=== PATIENT | female | born 1980 | race Caucasian/White ===

== ENCOUNTER 2017-11-05 09:39 | Emergency (ER) | payer MEDICAID ==
[2017-11-05] MEDS ORDERED: Ondansetron INJ* 2 MG/ML VIAL IV ONE (10:50)
[2017-11-05] MEDS ORDERED: NS 0.9% 1000 ML* 1,000 ML BOLUS ONE (10:50)
[2017-11-05] MEDS ORDERED: Famotidine IV* 10 MG/ML 2 ML (20 mg) IV SLOW PU ONE (10:51)
--- NOTE | 2017-11-05 10:55 | UC ---
Abdominal Pain Female HPI - HPI Summary HPI Summary: 36 yo female with the onset early this AM on n/Vx >10/diarrhea no f/v diffuse crampy abd pain has an IUD she had one beer at bedtime - History of Current Complaint Chief Complaint: UCGI Stated Complaint: VOMITTING Time Seen by Provider: 11/05/17 10:42 Hx Obtained From: Patient Hx Last Menstrual Period: 09/24/17 iud Onset/Duration: Sudden Onset, Lasting Hours Timing: Constant Severity Initially: Moderate Severity Currently: Moderate Pain Intensity: 4 Pain Scale Used: 0-10 Numeric Location: Diffuse Character: Cramping Aggravating Factor(s): Other: - liquids Alleviating Factor(s): Nothing Associated Signs and Symptoms: Positive: Nausea, Vomiting, Diarrhea, Other: - feels very thirsty. Negative: Diaphoresis, Fever, Cough, Chest Pain, Dizzy, Back Pain, Constipation, Blood in Stool, Urinary Symptoms, Decreased Appetite, Vaginal Bleeding, Vaginal Discharge Allergies/Adverse Reactions: Allergies Allergy/AdvReac Type Severity Reaction Status Date / Time Hydrocodone Allergy Severe DIZZY, Verified 11/05/17 10:30 SPINNING FEELING Amoxicillin Allergy Rash Verified 11/05/17 10:30 Penicillins Allergy Rash Verified 11/05/17 10:30 PMH/Surg Hx/FS Hx/Imm Hx Previously Healthy: Yes Respiratory History: Asthma - Surgical History Surgical History: Yes Surgery Procedure, Year, and Place: nose birthmark; acute acondylitis - Family History Known Family History: Positive: Respiratory Disease - daughter -- asthma - Social History Alcohol Use: Rare Substance Use Type: None Smoking Status (MU): Former Smoker Type: Cigarettes Amount Used/How Often: 1/2 ppd - Immunization History Most Recent Influenza Vaccination: never Most Recent Tetanus Shot: unk Most Recent Pneumonia Vaccination: never Review of Systems Constitutional: Negative Skin: Negative Eyes: Negative ENT: Negative Respiratory: Negative Cardiovascular: Negative Gastrointestinal: Abdominal Pain, Vomiting, Diarrhea, Nausea Genitourinary: Negative Motor: Negative Neurovascular: Negative Musculoskeletal: Negative Neurological: Negative Psychological: Negative Is Patient Immunocompromised?: No All Other Systems Reviewed And Are Negative: Yes Physical Exam Triage Information Reviewed: Yes Appearance: No Pain Distress, Well-Nourished, Ill-Appearing - vomiting during my initial interview with her Vital Signs: Initial Vital Signs Temp 98.4 F 12/17/17 10:25 Pulse 67 11/05/17 10:25 Resp 18 11/05/17 10:25 BP 138/77 11/05/17 10:25 Pulse Ox 99 11/05/17 10:25 Eyes: Positive: Conjunctiva Clear ENT: Positive: Hearing grossly normal, Uvula midline. Negative: Nasal congestion, Nasal drainage, Muffled voice, Hoarse voice Neck: Positive: Supple, Nontender Respiratory: Positive: Lungs clear, Normal breath sounds, No respiratory distress Cardiovascular: Positive: RRR, No Murmur Abdomen Description: Positive: No Organomegaly. Negative: Nontender - mild diffuse tenderness Bowel Sounds: Positive: Present Musculoskeletal: Positive: No Edema Neurological: Positive: Alert Psychological Exam: Normal Skin Exam: Normal Re-Evaluation - Re-Evaluation First Eval Re-Evaluation Time: 12:26 Change: Improved Comment: markedly improved, mild RUQ tenderness Abd Pain Female Course/Dx - Differential Dx/Diagnosis Provider Diagnoses: acute gastroenteritis Discharge - Discharge Plan Condition: Stable Disposition: HOME Prescriptions: Ondansetron TAB* [Zofran Tab*] 4 mg PO Q6H PRN #4 tab PRN Reason: Nausea Patient Education Materials: Gastroenteritis (ED), Acute Nausea and Vomiting ( ED) Referrals: [facility] [Primary Care Provider] - 1 Day (if not better please get rechecked) Additional Instructions: you are a little tender over your gallbladder to ER for new or worsening symptoms
[2017-11-05 12:36] VITALS: BP 146/79
== END 2017-11-05 12:45 | disposition home or self-care (01) ==
LOC: UCEAST 09:39
DX: K52.9 Noninfective gastroenteritis and colitis, unspecified (principal); Z72.89 Other problems related to lifestyle; Z87.891 Personal history of nicotine dependence
CPT/HCPCS: 96361; 96374; 96375; 99212; G0463; J2405

== ENCOUNTER 2020-03-16 08:00 | Inpatient (IN) | payer OTHER ==
[2020-03-16] MEDS ORDERED: Lactated Ringers 1000 ml BAG 1,000 ML IV ONE (08:30)
[2020-03-16 09:32] LABS: Urine Benzodiazepine Screen None Detected (None Detect); Urine Opiates Screen None Detected (None Detect)
[2020-03-16 11:39] LABS: ABS Eosinophils 0.1 10^3/ul (0-0.6); ABS Lymphocytes 1.8 10^3/ul (1.0-4.8); ABS Monocytes 0.6 10^3/ul (0-0.8); Eosinophil % 0.6 %; Hematocrit 38 % (35-47); Hemoglobin 13.1 g/dL (12.0-16.0); Lymphocyte % 19.3 %; Mean Corpuscular HGB Conc 34 g/dL (31-36); Mean Corpuscular Hemoglobin 29 pg (27-31); Mean Corpuscular Volume 86 fL (80-97); Mean Platelet Volume 9.5 fL (7.4-10.4); Nucleated Red Blood Cells % 0.1; Platelet Count 177 10^3/uL (150-450); Red Blood Count 4.47 10^6 /uL (3.70-4.87); Red Cell Distribution Width 15 % (10-15); White Blood Count 9.3 10^3/uL (3.5-10.8)
[2020-03-16] MEDS ORDERED: Oxytocin in LR 20 UNITS/1,000 ML BAG IVPB ONE (13:09)
[2020-03-16] MEDS ORDERED: Lactated Ringers 1000 ml BAG 1,000 ML IV SCH ×2 (13:15→14:00)
[2020-03-16] MEDS ORDERED: Oxytocin in LR 20 UNITS/1,000 ML BAG IVPB SCH (13:15)
[2020-03-16 21:18] LABS: Albumin 3.1 g/dL (3.2-5.2); Albumin/Globulin Ratio 1.1 (1-3); BUN/Creatinine Ratio 11.3 (8-20); Calcium 8.2 mg/dL (8.6-10.3); EGFR African American 111.5 (>60); EGFR Non-African American 92.1 (>60); Globulin 2.8 g/dL (2-4); Potassium 3.7 mmol/L (3.5-5.0); Total Bilirubin 0.3 mg/dL (0.2-1.0); Total Protein 5.9 g/dL (6.4-8.9); Uric Acid 5.2 mg/dL (2.3-6.6)
[2020-03-16 22:23] LABS: Urine Appearance Cloudy; Urine Bilirubin Negative (Negative); Urine Blood Negative (Negative); Urine Color Yellow; Urine Glucose Negative (Negative); Urine Ketones Negative (Negative); Urine Nitrite Negative (Negative); Urine Protein Negative (Negative); Urine Specific Gravity 1.013 (1.010-1.030); Urine Urobilinogen Negative (Negative)
[2020-03-17] MEDS ORDERED: Oxytocin in LR 20 UNITS/1,000 ML BAG IVPB SCH (14:30)
[2020-03-17] MEDS ORDERED: Lactated Ringers 1000 ml BAG 1,000 ML IV SCH (14:30)
[2020-03-18 08:40] LABS: ABS Eosinophils 0.1 10^3/ul (0-0.6); ABS Lymphocytes 1.8 10^3/ul (1.0-4.8); ABS Monocytes 0.6 10^3/ul (0-0.8); Eosinophil % 0.7 %; Hematocrit 40 % (35-47); Hemoglobin 13.3 g/dL (12.0-16.0); Lymphocyte % 16.1 %; Mean Corpuscular HGB Conc 34 g/dL (31-36); Mean Corpuscular Hemoglobin 30 pg (27-31); Mean Corpuscular Volume 88 fL (80-97); Platelet Count 193 10^3/uL (150-450); Red Blood Count 4.51 10^6 /uL (3.70-4.87); Red Cell Distribution Width 16 % (10-15); White Blood Count 11.1 10^3/uL (3.5-10.8)
[2020-03-18] MEDS ORDERED: Oxytocin in LR 20 UNITS/1,000 ML BAG IVPB ONE (10:24)
[2020-03-18] MEDS ORDERED: Oxytocin in LR 20 UNITS/1,000 ML BAG IVPB SCH ×2 (11:00→18:00)
[2020-03-18] MEDS ORDERED: OBEPIDURAL 250 ML EPIDURAL ONE (11:06)
[2020-03-18] MEDS ORDERED: Phenylephrine 40 mcg/mL 10mL (400mcg) SYRINGE ONE (11:21)
[2020-03-18] MEDS ORDERED: Lactated Ringers 1000 ml BAG 1,000 ML IV ONE (12:44)
[2020-03-18] MEDS ORDERED: EPHEDrine (Pressors) 50 MG/ML VIAL IV PUSH PRN ×2 (12:44)
[2020-03-18] MEDS ORDERED: Phenylephrine 40 mcg/mL 10mL (400mcg) SYRINGE IV PUSH PRN ×2 (12:44)
[2020-03-18] MEDS ORDERED: Sodium Citrate/Citric Acid LIQ 15 ML UDC PO PRN (12:44)
[2020-03-18] MEDS ORDERED: Lactated Ringers 1000 ml BAG 500 ML IV PRN ×2 (12:44)
[2020-03-18] MEDS ORDERED: OBEPIDURAL 250 ML EPIDURAL SCH (13:00)
[2020-03-18] MEDS ORDERED: Lactated Ringers 1000 ml BAG 1,000 ML IV SCH ×2 (13:00→18:00)
[2020-03-18] MEDS ORDERED: Witch Hazel PAD JAR TOPICAL PRN (17:30)
[2020-03-18] MEDS ORDERED: Dibucaine 1% OINT 28.35 GM TUBE PR PRN (17:30)
[2020-03-19] MEDS ORDERED: Lidocaine 1% VIAL 10 MG/ML VIAL ONE (00:38)
[2020-03-19 09:25] LABS: ABS Eosinophils 0.1 10^3/ul (0-0.6); ABS Lymphocytes 1.5 10^3/ul (1.0-4.8); ABS Monocytes 0.5 10^3/ul (0-0.8); Eosinophil % 0.5 %; Hematocrit 34 % (35-47); Hemoglobin 11.7 g/dL (12.0-16.0); Lymphocyte % 14.6 %; Mean Corpuscular HGB Conc 35 g/dL (31-36); Mean Corpuscular Hemoglobin 30 pg (27-31); Mean Corpuscular Volume 86 fL (80-97); Platelet Count 156 10^3/uL (150-450); Red Blood Count 3.97 10^6 /uL (3.70-4.87); Red Cell Distribution Width 15 % (10-15); White Blood Count 10.4 10^3/uL (3.5-10.8)
[2020-03-19 12:04] VITALS: BP 136/85
== END 2020-03-19 18:45 | disposition home or self-care (01) | DRG 560 ==
LOC: MCHOBOUT 08:00 → MCHOB 08:23
PROVIDERS: ADMIT Midwife; ATTEND Obstetrics & Gynecology